=== PATIENT | female | born 1995 | race Caucasian/White ===

== ENCOUNTER → 2016-11-08 | Outpatient (CLI) | payer OTHER ==
[~2016-11-08] MED LIST: AZIT250T3 PO
[2016-11-11 10:04] LABS: RAPID PLASMA REAGIN SCREEN NON-REACTIVE (NON-REACTVE)
== END ==
LOC: CLAB 11:15
PROVIDERS: ATTEND Obstetrics & Gynecology
DX: A60.00 Herpesviral infection of urogenital system, unspecified (principal); Z11.3 Encounter for screening for infections with a predominantly sexual mode of transmission; Z11.4 Encounter for screening for human immunodeficiency virus [HIV]; Z20.5 Contact with and (suspected) exposure to viral hepatitis
CPT/HCPCS: 36415; 80074; 86592; 86695; 86696; 86703

== ENCOUNTER 2017-02-24 06:50 | Emergency (ER) | payer OTHER ==
[~2017-02-24] VITALS: Ht 160 cm; Wt 60.0 kg
[2017-02-24 06:51] VITALS: BP 126/74; PULSE 74; RESP 16; TEMP 98.6; O2SAT 98
[2017-02-24] MEDS ORDERED: AZIT250T3 PO (07:07)
--- NOTE | 2017-02-24 07:45 | PD ---
HPI Chief Complaint: Laceration/Skin Injury Time Seen by Provider: 07:42 Travel History International Travel<30 days: No Contact w/Intl Traveler<30days: No Traveled to known affect area: No History of Present Illness HPI 22-year-old female presents to the emergency Department with complaint of a laceration to her right eyelid from a dog scratch that occurred yesterday morning. Denies eye pain, eye drainage, change in vision. Up-to-date on tetanus vaccination. Has cleaned the wound and applied a Bandage. Has no other medical complaints. No known allergies. No other modifying factors or associated signs and symptoms. [facility] Social History Tobacco Use: No Allergies-Medications (Allergen,Severity, Reaction): Coded Allergies: No Known Allergies (Unverified , 02/24/17) Reported Meds & Prescriptions Reported Meds & Active Scripts Active Reported Azithromycin 250 Mg Tab 250 Mg PO DAILY PRN Review of Systems Except as stated in HPI: all other systems reviewed are Neg Physical Exam Narrative GENERAL: Well-nourished, well-developed female patient, in no acute distress; afebrile, nontoxic-appearing SKIN: Warm and dry. Approximately 1 cm laceration that is well approximated and healing by secondary intention to the right eyelid; with mild edema and without erythema, drainage. No orbital cellulitis, edema or erythema. HEAD: Atraumatic. Normocephalic. EYES: Pupils equal and round. No scleral icterus. No injection or drainage. ENT: Mucosa pink and moist. Airway patent. NECK: Trachea midline. CARDIOVASCULAR: Regular rate. RESPIRATORY: No accessory muscle use. GASTROINTESTINAL: Flat. MUSCULOSKELETAL: No obvious deformities. No clubbing. No cyanosis. No edema. NEUROLOGICAL: Awake and alert. Oriented 3. No obvious cranial nerve deficits. Motor grossly within normal limits. Normal speech. PSYCHIATRIC: Appropriate mood and affect; insight and judgment normal. Data Data Last Documented VS Vital Signs Date Time Temp Pulse Resp B/P Pulse Ox O2 Delivery O2 Flow Rate FiO2 02/24/17 06:51 98.6 74 16 126/74 98 Room Air MDM Medical Decision Making Medical Screen Exam Complete: Yes Emergency Medical Condition: Yes Medical Record Reviewed: Yes Differential Diagnosis Eyelid laceration, facial laceration, abrasion Narrative Course 22-year-old female with a laceration to the right eyelid that is well approximated and healing by secondary intention. No signs of infection. Patient is afebrile nontoxic appearing. Up-to-date on tetanus vaccination. Discussed signs and symptoms of infection. Patient verbalizes understanding and agreement with treatment plan. Patient is medically cleared and stable for discharge. Discussed reasons to return to the emergency department. Instructed patient to follow up with primary care provider. Patient agrees with treatment plan. The patients vital signs are stable and the patient is stable for outpatient follow-up and treatment. Patient discharged home, stable and in no acute distress. Diagnosis Primary Impression: Right eyelid laceration Qualified Code: S01.111A - Right eyelid laceration, initial encounter Additional Impression: Dog scratch Referrals: Primary Care Physician Patient Instructions: Acute Wound Care (ED), Facial Laceration (ED), General Instructions Departure Forms: Tests/Procedures, Work Release Enter return to work date: Feb 25, 2017 Additional Instructions: Keep area clean and dry Ibuprofen or Tylenol as directed and as needed for pain and inflammation Ice pack to area as needed to decrease pain and inflammation Follow up with primary care provider Return to the emergency department immediately with worsening of symptoms Med/Other Pt SpecificInfo: Prescription(s) given Disposition: 01 DISCHARGE HOME Condition: Stable Radha Bass Feb 24, 2017 07:45
== END 2017-02-24 08:09 | disposition home or self-care (01) ==
LOC: NEPK 06:50
DX: S01.111A Laceration without foreign body of right eyelid and periocular area, initial encounter (principal); X58.XXXA Exposure to other specified factors, initial encounter
CPT/HCPCS: 99282

== ENCOUNTER → 2017-08-18 | Outpatient (CLI) | payer OTHER ==
[2017-08-18 11:03] LABS: RUBELLA IGG ANTIBODY GREATER THAN 500.0 IU/mL (10.0-500.0); RUBELLA STATUS IMMUNE (IMMUNE)
[2017-08-20 18:56] LABS: MITOGEN MINUS NIL RESULT >10.00 IU/mL; NIL RESULT 0.03 IU/mL; QUANTIFERON TB GOLD RESULT Negative (Negative)
[2017-08-20 19:52] LABS: MEASLES AB IGM <1:20 (<1:20)
== END ==
LOC: CLAB 07:11
DX: Z00.00 Encounter for general adult medical examination without abnormal findings (principal)
CPT/HCPCS: 36415; 86317; 86480; 86735; 86762; 86787